=== PATIENT | male | born 1985 | race Two or more races ===

== ENCOUNTER 2020-09-10 11:06 | Emergency (ER) | payer SELFPAY ==
[~2020-09-10] VITALS: Ht 182.9 cm; Wt 104.3 kg
[2020-09-10 11:42] VITALS: BP 128/90
[2020-09-10] MEDS ORDERED: HYDROcodone-ACET 10/325MG TAB PO ONE (12:15)
[2020-09-10] MEDS ORDERED: KETOROLAC TROMETH 60MG/2ML VIAL IM ONE (12:15)
== END 2020-09-10 13:02 | disposition home or self-care (01) ==
LOC: ER 11:06
DX: M54.16 Radiculopathy, lumbar region (principal); G89.29 Other chronic pain; M54.5 Low back pain; F17.210 Nicotine dependence, cigarettes, uncomplicated
CPT/HCPCS: 96372; 99283; J1885